=== PATIENT | male | born 1975 | race Caucasian/White ===

== ENCOUNTER 2016-07-22 11:55 | Emergency (ER) | payer BC ==
[2016-07-22] MEDS ORDERED: ASPIRIN 81 MG TABLET, CHEWABLE PO ONE (12:23)
--- NOTE | 2016-07-22 12:30 | ER Document Report ---
ED Medical Screen (RME) - General Stated Complaint: CHEST PAIN Time seen by provider: 12:27 Mode of Arrival: Ambulatory Information source: Patient Notes: 41-year-old nonsmoker, nonhypertensive, nondiabetic, hyperlipidemic, no family history of coronary artery disease, male complaining of right sided upper linear chest pain that lasts for a few seconds at least 100 times since last night. It originally started several months ago. He also has some left middle quadrant abdominal pain that started at the same time. No right upper quadrant tenderness in triage. He does have some associated nausea with this pain. Came in today because it is more intense and more frequent. I have greeted and performed a rapid initial assessment of this patient. A comprehensive ED assessment, evaluation of the patient, analysis of test results , and completion of the medical decision making process will be conducted by additional ED providers. - Related Data Allergies/Adverse Reactions: No Known Allergies Allergy (Verified 07/22/16 12:28) Physical Exam - Vital signs Vitals: Temp Pulse Resp BP Pulse Ox 98.1 F 88 18 136/84 H 100 07/22/16 11:58 07/22/16 11:58 07/22/16 11:58 07/22/16 11:58 07/22/16 11:58 Course - Vital Signs Vital signs: Temp Pulse Resp BP Pulse Ox 98.1 F 88 18 136/84 H 100 07/22/16 11:58 07/22/16 11:58 07/22/16 11:58 07/22/16 11:58 07/22/16 11:58
[2016-07-22 12:51] LABS: ABSOLUTE EOSINOPHILS # (AUTO) 0.1 10^3/uL (0.0-0.6); ABSOLUTE LYMPHOCYTES (AUTO) 1.7 10^3/uL (0.5-4.7); ABSOLUTE MONOCYTES (AUTO) 0.3 10^3/uL (0.1-1.4); ABSOLUTE NEUT (AUTO) 3.6 10^3/uL (1.7-8.2); BASOPHILS % (AUTO) 0.5 % (0-2); EOSINOPHILS % (AUTO) 1.1 % (0-6); HEMATOCRIT 43.8 % (37.9-51.0); HEMOGLOBIN 15.2 g/dL (13.5-17.0); HGB HCT DIFFERENCE 1.8; LYMPHOCYTES % (AUTO) 29.6 % (13-45); MEAN CORPUSCULAR HEMOGLOBIN 29.9 pg (27.0-33.4); MEAN CORPUSCULAR HGB CONC 34.8 g/dL (32.0-36.0); MEAN CORPUSCULAR VOLUME 86 fl (80-97); MONOCYTES % (AUTO) 6.1 % (3-13); RED BLOOD COUNT 5.09 10^6/uL (4.35-5.55); RED CELL DISTRIBUTION WIDTH 13.4 % (11.5-14.0); SEGMENTED NEUTROPHILS % (AUTO) 62.7 % (42-78); WHITE BLOOD COUNT 5.7 10^3/uL (4.0-10.5)
--- NOTE | 2016-07-22 12:59 | EKG REPORT ---
SEVERITY:- NORMAL ECG - SINUS RHYTHM : Confirmed by: Mimi Plasencia 22-Jul-2016 12:59:01
[2016-07-22 13:12] LABS: ALANINE AMINOTRANSFERASE 47 U/L (21-72); ALBUMIN 4.4 g/dL (3.5-5.0); ALKALINE PHOSPHATASE 88 U/L (38-126); ANION GAP 11 (5-19); ASPARTATE AMINO TRANSFERASE 33 U/L (17-59); BILIRUBIN,TOTAL 0.8 mg/dL (0.2-1.3); BLOOD UREA NITROGEN 12 mg/dL (7-20); CALCIUM 9.4 mg/dL (8.4-10.2); CARBON DIOXIDE 31 mmol/L (22-30); CHLORIDE 99 mmol/L (98-107); CREATINE KINASE 136 U/L (55-170); CREATININE RESULT 1.06 mg/dL (0.52-1.25); GLUCOSE 82 mg/dL (75-110); LIPASE 68.8 U/L (23-300); POTASSIUM 4.1 mmol/L (3.6-5.0); SODIUM 141.2 mmol/L (137-145); TOTAL PROTEIN 7.2 g/dL (6.3-8.2)
[2016-07-22 13:24] LABS: CREATINE KINASE MB 0.92 ng/mL (<4.55); TROPONIN I < 0.012 ng/mL
--- NOTE | 2016-07-22 15:22 | ER Document Report ---
ED General - General Chief Complaint: Chest Pain > 30 Stated Complaint: CHEST PAIN Time seen by provider: 15:16 Mode of Arrival: Ambulatory Information source: Patient Notes: 41-year-old male presents to ED for right chest pain for the last year intermittently worse off and on for the last week. He also complains of some left lower quadrant pain and some mid epigastric pain. He does sometimes have nausea. TRAVEL OUTSIDE OF THE [place] IN LAST 30 DAYS: No - HPI Onset: Other - Pain is been off and on for year worse for the last week Onset/Duration: Intermittent Severity: None Pain Level: Denies Associated symptoms: Chest pain - States his pain comes and goes and has no pain at this moment, Nausea - States he has nausea at times but none at this moment. denies: Shortness of breath Exacerbated by: Denies Relieved by: Denies Similar symptoms previously: Yes Recently seen / treated by doctor: No - Related Data Allergies/Adverse Reactions: No Known Allergies Allergy (Verified 07/22/16 12:28) Past Medical History - General Information source: Patient - Social History Smoking Status: Former Smoker Cigarette use (# per day): No Chew tobacco use (# tins/day): No Smoking Education Provided: No Frequency of alcohol use: None Drug Abuse: None Occupation: clinical therapist Lives with: Family Family History: CAD, COPD, Hyperlipidemia, Hypertension, Thyroid Disfunction Patient has suicidal ideation: No Patient has homicidal ideation: No - Past Medical History Cardiac Medical History: Reports: None Pulmonary Medical History: Reports: None EENT Medical History: Reports: None Neurological Medical History: Reports: None Endocrine Medical History: Reports: None Renal/ Medical History: Reports: None Malignancy Medical History: Reports None GI Medical History: Reports: None Musculoskeltal Medical History: Reports None Skin Medical History: Reports None Psychiatric Medical History: Reports: None Traumatic Medical History: Reports: Hx Fractures - Arm as a baby Infectious Medical History: Reports: None Surgical Hx: Negative Past Surgical History: Reports: None Review of Systems - Review of Systems Constitutional: No symptoms reported EENT: No symptoms reported Cardiovascular: Chest pain - Sometimes left sometimes right no pain at this moment Respiratory: No symptoms reported Gastrointestinal: Abdominal pain - Left lower quadrant midepigastric intermittently Genitourinary: No symptoms reported Male Genitourinary: No symptoms reported Musculoskeletal: No symptoms reported Skin: No symptoms reported Hematologic/Lymphatic: No symptoms reported Neurological/Psychological: No symptoms reported Physical Exam - Vital signs Vitals: Temp Pulse Resp BP Pulse Ox 98.1 F 88 18 136/84 H 100 07/22/16 11:58 07/22/16 11:58 07/22/16 11:58 07/22/16 11:58 07/22/16 11:58 Interpretation: Normal - General General appearance: Appears well, Alert - HEENT Head: Normocephalic, Atraumatic Eyes: Normal Pupils: PERRL - Respiratory Respiratory status: No respiratory distress Chest status: Nontender Breath sounds: Normal Chest palpation: Normal - Cardiovascular Rhythm: Regular Heart sounds: Normal auscultation Murmur: No - Abdominal Inspection: Normal Distension: No distension Bowel sounds: Normal Tenderness: Tender - Mid epigastric no other pain or tenderness at this time Organomegaly: No organomegaly - Back Back: Normal, Nontender - Extremities General upper extremity: Normal inspection, Nontender, Normal color, Normal ROM , Normal temperature General lower extremity: Normal inspection, Nontender, Normal color, Normal ROM , Normal temperature, Normal weight bearing. No: Mimi's sign - Neurological Neuro grossly intact: Yes Cognition: Normal Orientation: AAOx4 Rose[place]om Coma Scale Eye Opening: Spontaneous [place] Coma Scale Verbal: Oriented Cholo Coma Scale Motor: Obeys Commands Roseboom Coma Scale Total: 15 Speech: Normal Motor strength normal: LUE, RUE, LLE, RLE Sensory: Normal - Psychological Associated symptoms: Normal affect, Normal mood - Skin Skin Temperature: Warm Skin Moisture: Dry Skin Color: Normal Course - Re-evaluation Re-evalutation: 07/22/16 18:31 Discussed assessment and lab values with Dr. Lora who recommended a CTA of chest and CT of abdomen with IV contrast. Chest x-ray was negative. Discussed results of CT of abdomen pelvis and CTA of chest with patient and family written reports given to patient and family as well as well as reports of labs. CTA showed of 8.3 mm nodule in the left lower lobe of the long and a enlargement of the biliary ducts and thickening of the wall of the abdomen and duodenum. Patient instructed to please follow-up with his primary doctor and with a wool presser for these results. Patient instructed to please to take these CTs with him to these appointments so that they could see with the concern is. - Vital Signs Vital signs: Temp Pulse Resp BP Pulse Ox 98.8 F 68 16 110/73 96 07/22/16 19:02 07/22/16 19:02 07/22/16 19:02 07/22/16 19:02 07/22/16 19:02 - Laboratory Result Diagrams: 07/22/16 12:36 07/22/16 12:36 Laboratory results interpreted by me: 07/22/16 12:36 Carbon Dioxide 31 H - Diagnostic Test Radiology reviewed: Image reviewed, Reports reviewed - EKG Interpretation by Me EKG shows normal: Sinus rhythm, Sontag, Intervals Discharge - Discharge Clinical Impression: Chest pain of unknown etiology, Epigastric abdominal pain, Left lower quadrant abdominal pain of unknown etiology Condition: Stable Disposition: HOME, SELF-CARE Additional Instructions: CHEST PAIN OF UNCLEAR CAUSE: The exact cause of your chest pain isn't clear. Fortunately, there is no evidence of a dangerous medical condition. Further testing may be required to find the source of the pain. Most often, we find that this pain is coming from the chest wall -- the muscles or rib joints in the chest. But chest pain can come from the lung and lung lining, the esophagus, the heart valves or heart lining, and even the stomach or gallbladder. Rest. Eat lightly until the pain is gone. We may prescribe medicine for pain and inflammation. You should call the physician immediately if the pain radiates to the shoulder, jaw or arms; if you start to run a fever or develop a cough; or if you develop shortness of breath, or other new or alarming symptoms. ABDOMINAL PAIN: There are many causes of abdominal pain. Pain can mean a serious problem requiring surgery (such as appendicitis). It can also be an innocent problem that goes away on its own (such as a viral infection). Often, time must pass to determine the cause of pain. The physician does not feel that hospitalization is necessary, at present. Things may change within the next 24 hours. Call the doctor or come back for re- examination if any problems occur, such as: (1) Pain that becomes more severe, steady, or becomes concentrated in one specific area. Also, pain that is more severe with movement or coughing. (2) Vomiting that persists or becomes more frequent. (3) Blood in the vomitus, urine, or bowel movements. Blood in the stool may have a tarry or black appearance. (4) Shaking chills or fever greater than 100 degrees F. (5) The abdomen becomes more distended or swollen. (6) Bowel movements cease. (7) Failure to improve as expected. ASPIRIN: Aspirin has been shown to have a beneficial effect on blood circulation by reducing the clotting effect of platelets in the blood. These beneficial effects can be achieved by taking just a single baby (81 mg) aspirin a day. It is recommended that any person over the age of forty take a single baby aspirin every day for heart and brain circulation, unless you are allergic to aspirin or have some significant bleeding disorder. It is strongly recommended that people who have proven cardiac or blood circulation disturbances should take a baby aspirin every day. ANTINAUSEA MEDICATION: You have been given a medication to suppress nausea and vomiting. This type of medication can be given as a shot, pill, or suppository. It will usually last for many hours. Pills and shots usually last six to eight hours, suppositories last about 12 hours. For the typical illness, only one or two doses of the medication may be necessary. Mild lightheadedness may occur. This type of medicine can cause drowsiness. Do not drive or operate dangerous machinery while under its influence. Do not mix with alcohol. See your doctor at once if you have muscle spasms or tightness, or uncontrollable motions (particularly of the neck, mouth, or jaw). Persistent vomiting or severe lightheadedness should also be evaluated by the physician. Please follow-up with your primary doctor and get a referral to gastroenterology for your abdominal pain and you're thickening of the wall of your stomach and wanted him. Also follow-up with your primary doctor concerning the 8.3 mm nodule in your left lower lobe. This will need to be followed up and possibly biopsied in the future. FOLLOW-UP CARE: If you have been referred to a physician for follow-up care, call the physician s office for an appointment as you were instructed or within the next two days. If you experience worsening or a significant change in your symptoms, notify the physician immediately or return to the Emergency Department at any time for re-evaluation. Forms: Elevated Blood Pressure, Return to Work Referrals: CAROLYN BARNETT MD [Primary Care Provider] - Follow up as needed
[2016-07-22 17:10] LABS: APPEARANCE,URINE CLEAR; BILIRUBIN,URINE NEGATIVE (NEGATIVE); GLUCOSE, URINE NEGATIVE (NEGATIVE); KETONES,URINE NEGATIVE (NEGATIVE); LEUKOCYTE ESTERASE,URINE NEGATIVE (NEGATIVE); NITRITE,URINE NEGATIVE (NEGATIVE); PROTEIN,URINE NEGATIVE (NEGATIVE); URINE SPECIFIC GRAVITY 1.013; UROBILINOGEN,URINE NEGATIVE mg/dL (<2.0)
[2016-07-22 19:20] VITALS: BP 110/73
== END 2016-07-22 19:02 | disposition home or self-care (01) ==
LOC: ER 11:55
DX: R07.9 Chest pain, unspecified (principal); R10.13 Epigastric pain; R10.32 Left lower quadrant pain; R11.0 Nausea; Z87.891 Personal history of nicotine dependence
CPT/HCPCS: 36415; 71020; 71275; 74177; 80053; 81001; 82550; 82553; 83690; 84484; 85025; 93005; 93010; 99285